=== PATIENT | female | born 1980 | race Two or more races ===

== ENCOUNTER 2017-10-08 23:36 | Emergency (ER) | payer MEDICAID ==
[~2017-10-08] VITALS: Ht 160 cm; Wt 59.0 kg
[2017-10-08 23:45] VITALS: BP 132/80
== END 2017-10-09 03:33 | disposition left against medical advice (07) ==
LOC: ER 23:37
DX: R11.2 Nausea with vomiting, unspecified (principal); Z53.21 Procedure and treatment not carried out due to patient leaving prior to being seen by health care provider

== ENCOUNTER 2017-12-15 14:49 | Emergency (ER) | payer MEDICAID ==
[~2017-12-15] VITALS: Ht 157.5 cm; Wt 59.0 kg
[2017-12-15 14:58] VITALS: BP 125/81
[2017-12-15 15:42] LABS: Urine Bacteria MOD /hpf (None Seen); Urine Blood TRACE /uL (Negative); Urine Specific Gravity 1.009 (1.001-1.035); Urine WBC 10 /hpf (0 - 5)
[2017-12-15 16:21] LABS: Albumin 3.7 g/dL (3.4-5.0); BUN/Creatinine Ratio 13.2; Basophils # (auto) 0 uL; Basophils % (auto) 0.4 % (0.0-2.0); Calcium 8.7 mg/dL (8.5-10.1); Eosinophils # (auto) 0.1 uL; Eosinophils % (auto) 1.7 % (0.0-7.0); Hematocrit 39.8 % (36.0-46.0); Hemoglobin 13.8 g/dL (12.2-16.2); Lymphocytes # (auto) 1.7 uL; Lymphocytes % (auto) 24.8 % (10.0-50.0); Mean Corpuscular Hemoglobin 32.8 pg (28.0-32.0); Mean Corpuscular Hgb Conc. 34.6 g/dL (32.0-36.0); Mean Corpuscular Volume 94.9 fL (80.0-100.0); Monocytes # (auto) 0.4 uL; Monocytes % (auto) 6.4 % (0.0-12.0); Neutrophils # (auto) 4.5 uL; Neutrophils % (auto) 66.7 % (37.0-80.0); Nucleated Red Blood Cells % 0.1 %; Platelet Count (auto) 199 10^3/uL (140-450); Potassium 3.6 mmol/L (3.5-5.1); Red Blood Cells 4.19 10^6/uL (4.0-5.20); Red Cell Distribution Width 12.6 % (11.8-14.3); White Blood Cell 6.8 10^3/uL (4.4-10.8)
[2017-12-15 16:23] LABS: Bilirubin, Total 0.3 mg/dL (0.2-1.0); Total Protein 7.5 g/dL (6.4-8.2)
== END 2017-12-15 21:00 | disposition left against medical advice (07) ==
LOC: ER 14:49
DX: R10.2 Pelvic and perineal pain (principal); Z53.21 Procedure and treatment not carried out due to patient leaving prior to being seen by health care provider
CPT/HCPCS: 36415; 80053; 81001; 84702; 85025